=== PATIENT | female | born 1935 | race Caucasian/White ===

== ENCOUNTER 2016-08-01 12:11 | Day surgery (SDC) | payer OTHER ==
[~2016-08-01] VITALS: Ht 172.7 cm; Wt 83.0 kg
[~2016-08-01 12:11] MED LIST: AMIODARONE HCL200 MG PO; ASCORBIC ACID500 M3 PO; COUMADIN,JANTO7.5 MG PO; COUMADIN1 MG PO; COUMADIN3 MG PO; COUMADIN4 MG PO; COUMADIN5 MG PO; COUMADIN6 MG PO; COUMADIN7.5 MG PO; DIGOXIN125 MCG PO; FLAX OIL1000 MG PO; FOLIC ACID1 MG PO; GLUCOSAMINE CH1 EAC2 PO; GLUCOSAMINE1000 MG PO; K-DUR20 MEQ PO; LANOXIN,DIGI0.125 MG PO; LANOXIN125 MCG PO; LIDOCAINE700 MG TD; METAMUCIL0.52 GM PO; NORCO 5/3251 TABLET PO; OXYCODONE HCL10 MG PO; PERCOCET 5/31 TABLET PO; REGULOID0.52 GM PO; SUCRALFATE1 GM PO; TUMS500 MG PO; TYLENOL ARTHRI650 MG PO; TYLENOL EXTRA500 MG PO; Tums,OsCal PO; ULTRAM50 MG PO; VITAMIN B12 100MCG PO; VITAMIN D31000 UNIT PO; WARFARIN SODIUM1 MG PO; WARFARIN SODIUM3 MG PO; ZOFRAN ODT4 MG PO; ZOFRAN4 MG PO
[2016-08-01 12:43] VITALS: BP 171/75
[2016-08-01 12:52] LABS: PTT 29.6 (25-32)
[2016-08-01 12:53] LABS: INTER. NORMALIZED RATIO 1.1; PROTHROMBIN TIME 11.7 (9.2-11.2)
[2016-08-01 17:20] VITALS: BP 154/79
[2016-08-01 18:25] VITALS: BP 145/76
[2016-08-01 20:00] VITALS: BP 147/74
== END 2016-08-01 20:05 | disposition home or self-care (01) ==
LOC: SDC 12:11
PROVIDERS: Neurological Surgery
PROC: 0QU03JZ Supplement Lumbar Vertebra with Synthetic Substitute, Percutaneous Approach (ICD-10-PCS; principal; 2016-08-01)
DX: M80.08XA Age-related osteoporosis with current pathological fracture, vertebra(e), initial encounter for fracture (principal); M89.78 Major osseous defect, other site; G89.29 Other chronic pain; M54.5 Low back pain; I48.91 Unspecified atrial fibrillation; M47.817 Spondylosis without myelopathy or radiculopathy, lumbosacral region; Z86.711 Personal history of pulmonary embolism; Z86.718 Personal history of other venous thrombosis and embolism; F41.9 Anxiety disorder, unspecified; Z85.038 Personal history of other malignant neoplasm of large intestine; Z79.01 Long term (current) use of anticoagulants; Z82.49 Family history of ischemic heart disease and other diseases of the circulatory system; Z82.0 Family history of epilepsy and other diseases of the nervous system; Z88.8 Allergy status to other drugs, medicaments and biological substances
CPT/HCPCS: 85610; 85730; 88305; 88311; J0330; J0690; J1170; J2250; J2405; J3010

== ENCOUNTER 2016-08-03 16:34 | Inpatient (IN) | payer OTHER ==
[~2016-08-03] VITALS: Ht 172.7 cm; Wt 85.1 kg
[2016-08-03 17:14] LABS: HEMATOCRIT 35.9 % (36.0-46.0); MCH 32.5 PG (29.0-34.0); MCHC 33.4 G/DL (30.0-36.0); MCV 97.3 FL (83-99); MEAN PLAT.VOLUME 10.2 uM^3 (9.5-12.4); PLATELET COUNT 219 K/uL (156-360); RBC DIS.WIDTH-CV 14.2 % (11.8-14.6); RBC DIS.WIDTH-SD 51.1 % (39-53); RED BLOOD COUNT 3.69 M/uL (3.80-5.20)
[2016-08-03 17:17] LABS: WHITE BLOOD COUNT 7.7 K/uL (4.1-10.2)
[2016-08-03 17:24] LABS: CHLORIDE 103 mEq/L (99-109); POTASSIUM 3.6 mEq/L (3.7-5.4); SODIUM 140 mEq/L (136-147)
[2016-08-03 17:26] LABS: GLUCOSE 131 mg/dL (70-99)
[2016-08-03 17:28] LABS: ANION GAP 11 MEQ/L (2-14)
[2016-08-03 17:30] LABS: GFR ESTIMATE (CALCULATED) 46 mL/min/
[2016-08-03 17:31] LABS: UREA NITROGEN (BUN) 11 mg/dL (9-23)
[2016-08-03 19:01] LABS: TROP-I INTERPRETATION NEGATIVE; TROPONIN-I < 0.01 ng/mL (0.0-0.30)
[2016-08-03 21:41] LABS: POINT-OF-CARE METER ID UU14100415
[2016-08-04] VITALS: BP 136/70
[2016-08-04 00:10] VITALS: BP 136/70
[2016-08-04 01:56] LABS: METH RESISTANT S AUREUS PCR NEGATIVE (NEGATIVE)
[2016-08-04 01:57] LABS: PROBE CHECK PASS; SPECIMEN PROCESSING CONTROL PASS
[2016-08-04 05:00] VITALS: BP 108/42
[2016-08-04 06:32] LABS: INTER. NORMALIZED RATIO 1.1; PROTHROMBIN TIME 11.7 (9.2-11.2)
[2016-08-04 06:36] LABS: TROP-I INTERPRETATION NEGATIVE; TROPONIN-I 0.02 ng/mL (0.0-0.30)
[2016-08-04 09:00] VITALS: BP 143/65
[2016-08-04 12:00] VITALS: BP 137/61
[2016-08-04 13:18] LABS: ANION GAP 9 MEQ/L (2-14); CHLORIDE 105 MEQ/L (99-109); POTASSIUM 3.8 MEQ/L (3.7-5.4); SAMPLE HEMOLYSIS CHECK 0; SAMPLE ICTERIC CHECK 0; SAMPLE LIPEMIA CHECK 0; SODIUM 140 MEQ/L (136-147)
[2016-08-04 13:23] LABS: GFR ESTIMATE (CALCULATED) > 59 mL/min/; UREA NITROGEN (BUN) 8 mg/dL (9-23)
[2016-08-04 13:27] LABS: TROP-I INTERPRETATION NEGATIVE; TROPONIN-I 0.01 ng/mL (0.0-0.30)
[2016-08-04 13:28] LABS: GLUCOSE 94 mg/dL (70-99)
== END 2016-08-04 15:30 | disposition home health service (06) | DRG 310 ==
LOC: EME → EDBD 16:34 → EME 16:34 → EDOF 21:26 → 4WEST 22:23 → EDOF 22:24 → 4WEST 23:49
PROVIDERS: Emergency Medicine; Hospitalist; Internal Medicine Cardiovascular Disease
PROC: 5A2204Z Restoration of Cardiac Rhythm, Single (ICD-10-PCS; principal; 2016-08-03)
DX: I48.0 Paroxysmal atrial fibrillation (principal); I10 Essential (primary) hypertension; E78.5 Hyperlipidemia, unspecified; Z96.643 Presence of artificial hip joint, bilateral; R19.7 Diarrhea, unspecified; Z79.01 Long term (current) use of anticoagulants; Z86.718 Personal history of other venous thrombosis and embolism; Z86.711 Personal history of pulmonary embolism; Z88.0 Allergy status to penicillin; Z88.5 Allergy status to narcotic agent; Z88.3 Allergy status to other anti-infective agents; Z90.81 Acquired absence of spleen; Z90.49 Acquired absence of other specified parts of digestive tract; Z87.891 Personal history of nicotine dependence
CPT/HCPCS: 71010; 71275; 72132; 80048; 81003; 82948; 83735; 84100; 84443; 84484; 85027; 85610; 87641; 93005; 93971; 99281; 99285; J2690; J7030; J7050

== ENCOUNTER 2016-08-12 02:09 | Observation (INO) | payer OTHER ==
[~2016-08-12] VITALS: Ht 172.7 cm; Wt 81.6 kg
[2016-08-12 02:43] LABS: MCH 31.4 PG (29.0-34.0); MCHC 32.3 G/DL (30.0-36.0); MCV 97.3 FL (83-99); MEAN PLAT.VOLUME 9.4 uM^3 (9.5-12.4); PLATELET COUNT 365 K/uL (156-360); RBC DIS.WIDTH-CV 14.2 % (11.8-14.6); RED BLOOD COUNT 4.11 M/uL (3.80-5.20); WHITE BLOOD COUNT 6.7 K/uL (4.1-10.2)
[2016-08-12 02:50] LABS: CHLORIDE 104 mEq/L (99-109); POTASSIUM 3.6 mEq/L (3.7-5.4); SODIUM 139 mEq/L (136-147)
[2016-08-12 02:52] LABS: GLUCOSE 109 mg/dL (70-99)
[2016-08-12 02:53] LABS: ANION GAP 10 MEQ/L (2-14)
[2016-08-12 02:56] LABS: GFR ESTIMATE (CALCULATED) 57 mL/min/; UREA NITROGEN (BUN) 14 mg/dL (9-23)
[2016-08-12 03:00] LABS: INTER. NORMALIZED RATIO 2.4; PROTHROMBIN TIME 25.5 (9.2-11.2)
[2016-08-12 03:03] LABS: TOTAL BILIRUBIN 0.4 mg/dL (0.0-1.0)
[2016-08-12 03:04] LABS: ALKALINE PHOSPHATASE 81 IU/L (3-129); TROP-I INTERPRETATION NEGATIVE; TROPONIN-I 0.03 ng/mL (0.0-0.30)
[2016-08-12 03:07] LABS: DIRECT BILIRUBIN 0.1 mg/dL (0.0-0.3)
[2016-08-12 06:08] VITALS: BP 136/50
[2016-08-12 07:00] VITALS: BP 114/57
[2016-08-12 07:42] LABS: METH RESISTANT S AUREUS PCR NEGATIVE (NEGATIVE); PROBE CHECK PASS; SPECIMEN PROCESSING CONTROL PASS
[2016-08-12 08:00] VITALS: BP 116/55
[2016-08-12 10:04] LABS: HEMATOCRIT 34.3 % (36.0-46.0); MCHC 32.7 G/DL (30.0-36.0); MEAN PLAT.VOLUME 9.2 uM^3 (9.5-12.4); PLATELET COUNT 334 K/uL (156-360); RBC DIS.WIDTH-CV 14.4 % (11.8-14.6); RBC DIS.WIDTH-SD 51.9 % (39-53); WHITE BLOOD COUNT 5.3 K/uL (4.1-10.2)
[2016-08-12 10:29] LABS: ALKALINE PHOSPHATASE 64 IU/L (3-129); ANION GAP 6 MEQ/L (2-14); CHLORIDE 107 MEQ/L (99-109); GFR ESTIMATE (CALCULATED) > 59 mL/min/; GLUCOSE 136 mg/dL (70-99); SAMPLE HEMOLYSIS CHECK 0; SAMPLE ICTERIC CHECK 0; SAMPLE LIPEMIA CHECK 0; SODIUM 140 MEQ/L (136-147); TOTAL BILIRUBIN 0.4 MG/DL (0.0-1.0); UREA NITROGEN (BUN) 12 mg/dL (9-23)
[2016-08-12 10:32] LABS: POTASSIUM 4.5 MEQ/L (3.7-5.4); TROP-I INTERPRETATION NEGATIVE; TROPONIN-I 0.06 ng/mL (0.0-0.30)
[2016-08-12 12:00] VITALS: BP 145/64
[2016-08-12 15:00] VITALS: BP 151/72
== END 2016-08-12 15:30 | disposition home or self-care (01) ==
LOC: EME 02:09 → EDOF 04:47 → 4WEST 06:03
PROVIDERS: Emergency Medicine; Internal Medicine
DX: I48.0 Paroxysmal atrial fibrillation (principal); E87.6 Hypokalemia; Z86.718 Personal history of other venous thrombosis and embolism; Z86.711 Personal history of pulmonary embolism; Z79.01 Long term (current) use of anticoagulants
CPT/HCPCS: 71010; 80048; 80053; 80076; 83735; 84484; 85027; 85610; 87641; 93005; 99281; 99285; G0378; J2690; J7030; J7050

== ENCOUNTER 2016-11-21 05:03 | Inpatient (IN) | payer OTHER ==
[~2016-11-21] VITALS: Ht 172.7 cm; Wt 84.1 kg
[2016-11-21 05:53] LABS: HEMATOCRIT 40.3 % (36.0-46.0); MCH 31.9 PG (29.0-34.0); MCHC 33.3 G/DL (30.0-36.0); MEAN PLAT.VOLUME 10.7 uM^3 (9.5-12.4); PLATELET COUNT 250 K/uL (156-360); RBC DIS.WIDTH-CV 14.6 % (11.8-14.6); RBC DIS.WIDTH-SD 51.2 % (39-53); WHITE BLOOD COUNT 8.4 K/uL (4.1-10.2)
[2016-11-21 06:09] LABS: CHLORIDE 104 mEq/L (99-109); POTASSIUM 4.2 mEq/L (3.7-5.4); SODIUM 139 mEq/L (136-147)
[2016-11-21 06:11] LABS: GLUCOSE 120 mg/dL (70-99)
[2016-11-21 06:12] LABS: ANION GAP 12 MEQ/L (2-14)
[2016-11-21 06:13] LABS: TOTAL BILIRUBIN 0.6 mg/dL (0.0-1.0)
[2016-11-21 06:15] LABS: ALKALINE PHOSPHATASE 84 IU/L (3-129); GFR ESTIMATE (CALCULATED) 56 mL/min/
[2016-11-21 06:16] LABS: UREA NITROGEN (BUN) 21 mg/dL (9-23)
[2016-11-21 06:18] LABS: LIPASE 20 U/L (1.0-51.0)
[2016-11-21 08:28] LABS: ADD MIUA? NO; BILIRUBIN NEGATIVE; BLOOD NEGATIVE; COLOR YELLOW ((YELLOW)); GLUCOSE (STRIP) NEGATIVE; KETONES NEGATIVE; LEUKOCYTES NEGATIVE; NITRITE NEGATIVE; PROTEIN (STRIP) NEGATIVE; SPECIFIC GRAVITY 1.034 (1.000-1.030); UCUL ADDED? NO; UROBILINOGEN 0.2 MG/DL (0.2-1.0)
[2016-11-21] MEDS ORDERED: WARFARIN SODIUM3 MG PO (09:25)
[2016-11-21] MEDS ORDERED: WARFARIN SODIUM5 MG PO (09:26)
[2016-11-21] MEDS ORDERED: LANOXIN125 MCG PO (09:27)
[2016-11-21] MEDS ORDERED: CARDIZEM30 MG PO (09:28)
[2016-11-21 10:28] LABS: INTER. NORMALIZED RATIO 1.7; PROTHROMBIN TIME 19.3 SEC (10.2-12.9)
[2016-11-21 10:51] LABS: MAGNESIUM 2.1 mg/dL (1.3-2.7)
[2016-11-21 12:29] VITALS: BP 180/79
[2016-11-21 16:45] VITALS: BP 148/66
[2016-11-21 19:42] VITALS: BP 134/63
[2016-11-21 23:41] VITALS: BP 108/54
[2016-11-22 03:45] VITALS: BP 121/79
[2016-11-22 06:55] LABS: HEMATOCRIT 35.1 % (36.0-46.0); MCH 32.4 PG (29.0-34.0); MCHC 32.8 G/DL (30.0-36.0); MCV 98.9 FL (83-99); MEAN PLAT.VOLUME 10.7 uM^3 (9.5-12.4); PLATELET COUNT 209 K/uL (156-360); RBC DIS.WIDTH-CV 14.6 % (11.8-14.6); RBC DIS.WIDTH-SD 54.2 % (39-53); RED BLOOD COUNT 3.55 M/uL (3.80-5.20); WHITE BLOOD COUNT 4.8 K/uL (4.1-10.2)
[2016-11-22 07:28] LABS: ANION GAP 6 MEQ/L (2-14); CHLORIDE 106 MEQ/L (99-109); GFR ESTIMATE (CALCULATED) > 59 mL/min/; GLUCOSE 107 mg/dL (70-99); POTASSIUM 4.2 MEQ/L (3.7-5.4); SAMPLE HEMOLYSIS CHECK 0; SAMPLE ICTERIC CHECK 0; SAMPLE LIPEMIA CHECK 0; SODIUM 140 MEQ/L (136-147); UREA NITROGEN (BUN) 12 mg/dL (9-23)
[2016-11-22 07:42] VITALS: BP 129/60
[2016-11-22 15:51] VITALS: BP 147/65
[2016-11-22 20:16] VITALS: BP 127/75
[2016-11-22 23:52] VITALS: BP 128/71
[2016-11-23 05:06] VITALS: BP 135/63
[2016-11-23 06:35] LABS: HEMATOCRIT 35.3 % (36.0-46.0); MCH 33.4 PG (29.0-34.0); MCHC 33.7 G/DL (30.0-36.0); MCV 99.2 FL (83-99); MEAN PLAT.VOLUME 10.6 uM^3 (9.5-12.4); PLATELET COUNT 203 K/uL (156-360); RBC DIS.WIDTH-CV 14.8 % (11.8-14.6); RBC DIS.WIDTH-SD 54.3 % (39-53); RED BLOOD COUNT 3.56 M/uL (3.80-5.20); WHITE BLOOD COUNT 5.9 K/uL (4.1-10.2)
[2016-11-23 06:55] VITALS: BP 147/65
[2016-11-23 06:58] LABS: ANION GAP 7 MEQ/L (2-14); CHLORIDE 106 MEQ/L (99-109); GFR ESTIMATE (CALCULATED) > 59 mL/min/; GLUCOSE 106 mg/dL (70-99); POTASSIUM 4.3 MEQ/L (3.7-5.4); SAMPLE HEMOLYSIS CHECK 0; SAMPLE ICTERIC CHECK 0; SAMPLE LIPEMIA CHECK 0; SODIUM 141 MEQ/L (136-147); UREA NITROGEN (BUN) 7 mg/dL (9-23)
[2016-11-23 15:20] VITALS: BP 133/66
== END 2016-11-23 17:46 | disposition home or self-care (01) | DRG 390 ==
LOC: EME 05:03 → 5EAST 10:42 → EDOF 10:42 → 5EAST 12:01
PROVIDERS: Emergency Medicine; Surgery
DX: K56.5 Intestinal adhesions [bands] with obstruction (postinfection) (principal); I48.0 Paroxysmal atrial fibrillation; K21.9 Gastro-esophageal reflux disease without esophagitis; F32.9 Major depressive disorder, single episode, unspecified; F41.9 Anxiety disorder, unspecified; M54.5 Low back pain; I25.10 Atherosclerotic heart disease of native coronary artery without angina pectoris; G89.29 Other chronic pain; M16.12 Unilateral primary osteoarthritis, left hip; Z96.643 Presence of artificial hip joint, bilateral; K56.7 Ileus, unspecified; R26.2 Difficulty in walking, not elsewhere classified; I10 Essential (primary) hypertension; E66.9 Obesity, unspecified; E78.5 Hyperlipidemia, unspecified; Z86.711 Personal history of pulmonary embolism; Z90.49 Acquired absence of other specified parts of digestive tract; Z87.891 Personal history of nicotine dependence; Z85.038 Personal history of other malignant neoplasm of large intestine; Z88.9 Allergy status to unspecified drugs, medicaments and biological substances; Z90.81 Acquired absence of spleen
CPT/HCPCS: 74000; 74177; 80048; 80053; 81003; 82378; 83605; 83690; 83735; 84100; 85027; 85610; 85730; 93005; 99281; 99285; J1650; J2405; J3010; J7030; J7120

== ENCOUNTER 2017-04-06 13:52 | Emergency (ER) | payer OTHER ==
[~2017-04-06] VITALS: Ht 172.7 cm; Wt 80.2 kg
[~2017-04-06 13:52] MED LIST changes: +CARDIZEM30 MG PO; +WARFARIN SODIUM5 MG PO
[2017-04-06 14:22] LABS: HEMATOCRIT 38.6 % (36.0-46.0); MCH 32.7 PG (29.0-34.0); MCHC 33.2 G/DL (30.0-36.0); MCV 98.5 FL (83-99); MEAN PLAT.VOLUME 10.5 uM^3 (9.5-12.4); PLATELET COUNT 229 K/uL (156-360); RBC DIS.WIDTH-SD 51.1 % (39-53); RED BLOOD COUNT 3.92 M/uL (3.80-5.20); WHITE BLOOD COUNT 5.4 K/uL (4.1-10.2)
[2017-04-06 14:35] LABS: CHLORIDE 106 mEq/L (99-109); POTASSIUM 4.5 mEq/L (3.7-5.4); SODIUM 139 mEq/L (136-147)
[2017-04-06 14:37] LABS: GLUCOSE 136 mg/dL (70-99)
[2017-04-06 14:39] LABS: ANION GAP 8 MEQ/L (2-14)
[2017-04-06 14:41] LABS: GFR ESTIMATE (CALCULATED) > 59 mL/min/
[2017-04-06 14:42] LABS: UREA NITROGEN (BUN) 18 mg/dL (9-23)
[2017-04-06 14:43] LABS: TROP-I INTERPRETATION NEGATIVE; TROPONIN-I < 0.01 ng/mL (0.0-0.30)
[2017-04-06 16:19] LABS: MAGNESIUM 2.2 mg/dL (1.3-2.7)
[2017-04-06 16:27] LABS: INTER. NORMALIZED RATIO 2.1; PROTHROMBIN TIME 23.7 SEC (10.2-12.9)
[2017-04-06 16:32] LABS: DIGOXIN 0.3 ng/mL (0.8-2.0)
[2017-04-06 17:28] VITALS: BP 165/68
== END 2017-04-06 17:28 | disposition home or self-care (01) ==
LOC: EME 13:52
PROVIDERS: Emergency Medicine
DX: I49.3 Ventricular premature depolarization (principal); I48.91 Unspecified atrial fibrillation; F32.9 Major depressive disorder, single episode, unspecified; K21.9 Gastro-esophageal reflux disease without esophagitis; Z79.01 Long term (current) use of anticoagulants; F41.9 Anxiety disorder, unspecified; Z96.643 Presence of artificial hip joint, bilateral; Z85.038 Personal history of other malignant neoplasm of large intestine; Z88.1 Allergy status to other antibiotic agents; Z88.0 Allergy status to penicillin; Z88.5 Allergy status to narcotic agent; Z87.891 Personal history of nicotine dependence
CPT/HCPCS: 71020; 80048; 80162; 83735; 84484; 85027; 85610; 93005; 99281; 99284